=== PATIENT | male | born 1965 | race African-American/Black ===

== ENCOUNTER 2016-12-22 12:01 | Emergency (ER) | payer OTHER ==
[~2016-12-22] VITALS: Ht 188 cm; Wt 102.3 kg
[~2016-12-22 12:01] MED LIST: GABA800T PO; TRAM100T28 PO; WARF10TA4 PO
[2016-12-22] MEDS ORDERED: 0.9% SODIUM CHLORIDE 15 ML NEB SOLUTION NEB ONE (12:32)
[2016-12-22] MEDS ORDERED: HYDR25TA PO (12:36)
[2016-12-22] MEDS ORDERED: KETOROLAC TROMETHAMINE 60 MG/2 ML VIAL IM ONE (14:15)
[2016-12-22] MEDS ORDERED: CefTRIAXone SODIUM 1 GM/VIAL IM ONE (14:15)
[2016-12-22] MEDS ORDERED: LIDOCAINE HCL/PF 1% 2 ML VIAL IM ONE (14:15)
[2016-12-22 15:29] VITALS: BP 128/68
== END 2016-12-22 15:43 | disposition home or self-care (01) ==
LOC: EMS 12:02
DX: N34.2 Other urethritis (principal); L30.9 Dermatitis, unspecified; R10.30 Lower abdominal pain, unspecified; I10 Essential (primary) hypertension
CPT/HCPCS: 96372; 99284; J0696; J1885; J3490

== ENCOUNTER 2017-01-19 12:50 | Emergency (ER) | payer OTHER ==
[~2017-01-19] VITALS: Ht 188 cm; Wt 100.0 kg
[~2017-01-19 12:50] MED LIST changes: +HYDR25TA PO; -TRAM100T28 PO
[2017-01-19 13:14] VITALS: BP 113/73
[2017-01-19] MEDS ORDERED: WARF3TAB29 PO (13:44)
[2017-01-19] MEDS ORDERED: GABA-531 PO (13:44)
[2017-01-19] MEDS ORDERED: AZITHROMYCIN 250 MG TABLET PO ONE (13:45)
[2017-01-19] MEDS ORDERED: KETOROLAC TROMETHAMINE 60 MG/2 ML VIAL IM ONE (13:45)
[2017-01-19] MEDS ORDERED: CefTRIAXone SODIUM 1 GM/VIAL IM ONE (13:45)
[2017-01-19] MEDS ORDERED: LIDOCAINE HCL 1% 10 ML VIAL INJ ONE (14:00)
== END 2017-01-19 14:37 | disposition home or self-care (01) ==
LOC: EMS 12:52
DX: N34.2 Other urethritis (principal); S39.012A Strain of muscle, fascia and tendon of lower back, initial encounter; I10 Essential (primary) hypertension; X58.XXXA Exposure to other specified factors, initial encounter; Y93.89 Activity, other specified; Y92.89 Other specified places as the place of occurrence of the external cause; Y99.8 Other external cause status
CPT/HCPCS: 96372; 99284; J0696; J1885; J3490

== ENCOUNTER 2017-08-16 16:07 | Emergency (ER) | payer OTHER ==
[~2017-08-16] VITALS: Ht 188 cm; Wt 102.3 kg
[~2017-08-16 16:07] MED LIST changes: +GABA-531 PO; -GABA800T PO; -WARF10TA4 PO; +WARF3TAB29 PO
[2017-08-16 17:34] LABS: APPEARANCE,URINE CLEAR (CLEAR); BILIRUBIN,URINE NEGATIVE (NEGATIVE); GLUCOSE, URINE (UA) NEGATIVE (NEGATIVE); KETONES,URINE NEGATIVE (NEGATIVE); LEUKOCYTE ESTERASE ,URINE NEGATIVE (NEGATIVE); NITRATE,URINE NEGATIVE (NEGATIVE); OCCULT BLOOD,URINE NEGATIVE (NEGATIVE); PROTEIN,URINE NEGATIVE (NEGATIVE)
[2017-08-16 19:28] LABS: BASOPHILS % (AUTO) 0.9 % (0.0-2.0); EOSINOPHILS % (AUTO) 0.9 % (1.0-6.0); LYMPHOCYTES # (AUTO) 1.6 K/uL (1.0-4.8); LYMPHOCYTES % (AUTO) 24.4 % (22.0-44.0); MEAN CORPUSCULAR HEMOGLOBIN 30.8 pg (26.0-34.0); MEAN CORPUSCULAR HGB CONC 33.4 G/dL (31.0-37.0); MEAN CORPUSCULAR VOLUME 92 fL (80-100); MONOCYTES # (AUTO) 0.4 K/uL (0.1-1.0); MONOCYTES % (AUTO) 5.6 % (2.0-9.0); NEUTROPHILS # (AUTO) 4.5 K/uL (1.8-7.7); NEUTROPHILS % (AUTO) 68.2 % (40.0-70.0); PLATELET COUNT (AUTO) 204 K/uL (150-450); RED BLOOD CELL COUNT(AUTO) 4.55 MIL/uL (4.50-5.90); RED CELL DISTRIBUTION WIDTH 13.9 % (11.5-14.5)
[2017-08-16 19:37] LABS: CALCIUM, TOTAL 9.5 mg/dL (8.8-10.5); CREATININE 1.67 mg/dL (0.60-1.30); POTASSIUM 3.9 mmol/L (3.5-5.1)
[2017-08-16 19:43] LABS: ALBUMIN 4.1 g/dL (3.4-5.0); BILIRUBIN,TOTAL 0.7 mg/dL (0.1-1.0); TOTAL PROTEIN, SERUM 8.3 g/dL (6.4-8.2)
[2017-08-16] MEDS ORDERED: SODIUM CHLORIDE 0.9% 1,000 ML IV ONE (19:45)
[2017-08-16] MEDS ORDERED: ONDANSETRON HCL 4 MG/2 ML VIAL IVP ONE (19:45)
[2017-08-16] MEDS ORDERED: MORPHINE SULFATE 4 MG/ML SYRINGE IVP ONE (19:45)
[2017-08-16 20:08] LABS: INR 2.4 (0.9-1.1); PROTHROMBIN TIME 24.6 SEC (9.4-11.6)
[2017-08-16] MEDS ORDERED: CefTRIAXone SODIUM 1 GM in DEXTROSE 5%-WATER 10 ML IV ONE (21:00)
[2017-08-16] MEDS ORDERED: CefTRIAXone SODIUM 1 GM/VIAL IV ONE (21:00)
[2017-08-16] MEDS ORDERED: AZITHROMYCIN 250 MG TABLET PO ONE (21:00)
[2017-08-16 21:40] VITALS: BP 111/65
== END 2017-08-16 21:41 | disposition home or self-care (01) ==
LOC: EMS 16:08
DX: R36.9 Urethral discharge, unspecified (principal); K40.90 Unilateral inguinal hernia, without obstruction or gangrene, not specified as recurrent; I10 Essential (primary) hypertension; Z79.899 Other long term (current) drug therapy
CPT/HCPCS: 36415; 74176; 80053; 81003; 85025; 85610; 87491; 87591; 96374; 96375; 99285; J0696; J2270; J2405; J7030; J7060

== ENCOUNTER 2018-01-31 13:18 | Emergency (ER) | payer OTHER ==
[~2018-01-31] VITALS: Ht 188 cm; Wt 100.0 kg
[2018-01-31] MEDS: CefTRIAXone SODIUM 1 GM/VIAL IM ONE (15:39)
[2018-01-31] MEDS: IBUPROFEN 800 MG TABLET PO ONE (15:39)
[2018-01-31] MEDS: AZITHROMYCIN 250 MG TABLET PO ONE (15:39)
[2018-01-31 15:57] VITALS: BP 126/68
[2018-01-31 16:40] LABS: APPEARANCE,URINE CLEAR (CLEAR); BILIRUBIN,URINE NEGATIVE (NEGATIVE); GLUCOSE, URINE (UA) NEGATIVE (NEGATIVE); KETONES,URINE NEGATIVE (NEGATIVE); LEUKOCYTE ESTERASE ,URINE NEGATIVE (NEGATIVE); NITRATE,URINE NEGATIVE (NEGATIVE); OCCULT BLOOD,URINE NEGATIVE (NEGATIVE); PROTEIN,URINE NEGATIVE (NEGATIVE)
== END 2018-01-31 16:28 | disposition left against medical advice (07) ==
LOC: EMS 13:20
DX: I10 Essential (primary) hypertension (principal); A64 Unspecified sexually transmitted disease
CPT/HCPCS: 81003; 87491; 87591; 96372; 99283; J0696

== ENCOUNTER 2019-12-26 13:47 | Emergency (ER) | payer OTHER ==
[~2019-12-26] VITALS: Ht 180.3 cm; Wt 100.0 kg
[~2019-12-26 13:47] MED LIST changes: +GABA-1181 PO; -GABA-531 PO; +HYDR-1475 PO; -HYDR25TA PO; -WARF3TAB29 PO; +WARF3TAB8 PO
[2019-12-26 14:45] LABS: APPEARANCE,URINE CLEAR (CLEAR); BILIRUBIN,URINE NEGATIVE (NEGATIVE); GLUCOSE, URINE (UA) NEGATIVE (NEGATIVE); KETONES,URINE NEGATIVE (NEGATIVE); LEUKOCYTE ESTERASE ,URINE NEGATIVE (NEGATIVE); NITRATE,URINE NEGATIVE (NEGATIVE); OCCULT BLOOD,URINE NEGATIVE (NEGATIVE); PH,URINE 5.5 (5.0-8.0); PROTEIN,URINE NEGATIVE (NEGATIVE)
[2019-12-26] MEDS ORDERED: CefTRIAXone SODIUM 1 GM/VIAL IM ONE (15:30)
[2019-12-26] MEDS ORDERED: LIDOCAINE/PF 1% 2 ML VIAL IM ONE (15:30)
[2019-12-26] MEDS ORDERED: AZITHROMYCIN 500 MG TABLET PO ONE (15:30)
[2019-12-26 16:05] VITALS: BP 135/77
== END 2019-12-26 16:05 | disposition home or self-care (01) ==
LOC: EMS 13:57
DX: N34.2 Other urethritis (principal); I10 Essential (primary) hypertension; Z79.899 Other long term (current) drug therapy
CPT/HCPCS: 81003; 96372; 99283; J0696; J3490

== ENCOUNTER 2020-04-15 11:18 | Emergency (ER) | payer OTHER ==
[~2020-04-15] VITALS: Ht 188 cm; Wt 95.5 kg
[~2020-04-15 11:18] MED LIST changes: -HYDR-1475 PO; +HYDR25TA2 PO
[2020-04-15] MEDS: DOXYCYCLINE HYCLATE 100 MG TABLET PO ONE ×2 (12:26→12:39)
[2020-04-15] MEDS ORDERED: KETOROLAC TROMETHAMINE 30 MG/ML VIAL IM ONE (12:30)
[2020-04-15] MEDS ORDERED: CefTRIAXone SODIUM 1 GM/VIAL IM ONE (12:30)
[2020-04-15] MEDS ORDERED: LIDOCAINE/PF 1% 2 ML VIAL IM ONE (12:30)
[2020-04-15] MEDS ORDERED: AZITHROMYCIN 500 MG TABLET PO ONE (12:45)
[2020-04-15 12:48] LABS: APPEARANCE,URINE CLEAR (CLEAR); BILIRUBIN,URINE NEGATIVE (NEGATIVE); GLUCOSE, URINE (UA) NEGATIVE (NEGATIVE); KETONES,URINE NEGATIVE (NEGATIVE); LEUKOCYTE ESTERASE ,URINE NEGATIVE (NEGATIVE); NITRATE,URINE NEGATIVE (NEGATIVE); OCCULT BLOOD,URINE NEGATIVE (NEGATIVE); PROTEIN,URINE NEGATIVE (NEGATIVE)
[2020-04-15 12:54] VITALS: BP 141/67
[2020-04-15 13:04] LABS: BACTERIA,URINE None Seen /HPF (None Seen); RBC,URINE None Seen /HPF (0-2); SQUAMOUS EPITHELIAL CELL,UR None Seen /LPF (None Seen); WBC,URINE None Seen /HPF (0-5)
== END 2020-04-15 13:03 | disposition home or self-care (01) ==
LOC: EMS 11:48
DX: N34.2 Other urethritis (principal); I10 Essential (primary) hypertension
CPT/HCPCS: 81001; 87491; 87591; 96372; 99284; A9575; J0696; J1885; J3490